=== PATIENT | male | born 1960 ===

== ENCOUNTER 2019-01-31 11:05 | Outpatient (CLI) | payer OTHER | END 2019-01-31 11:11 | disposition home or self-care (01) | LOC: LAB 11:05 | DX: J11.1 Influenza due to unidentified influenza virus with other respiratory manifestations (principal); R05 Cough ==

== ENCOUNTER 2019-05-09 10:35 | Outpatient (CLI) | payer OTHER ==
[2019-05-09] MEDS ORDERED: ALTACE5 MG (14:16)
== END 2019-05-09 10:50 | disposition home or self-care (01) ==
LOC: LAB 10:35
DX: J11.1 Influenza due to unidentified influenza virus with other respiratory manifestations (principal); N39.0 Urinary tract infection, site not specified; J06.9 Acute upper respiratory infection, unspecified; R10.84 Generalized abdominal pain

== ENCOUNTER 2019-05-09 13:51 | Emergency (ER) | payer OTHER ==
[~2019-05-09] VITALS: Ht 180.3 cm; Wt 77.1 kg
[2019-05-09] MEDS ORDERED: ALTACE5 MG (14:16)
== END 2019-05-09 20:04 | disposition home or self-care (01) ==
LOC: ER 13:51
DX: K59.09 Other constipation (principal)